=== PATIENT | female | born 1985 | race Caucasian/White ===

== ENCOUNTER → 2016-07-26 | Outpatient (CLI) | payer OTHER ==
--- NOTE | 2016-07-26 11:52 | US ---
July 26, 2016 Dear Ms. Karyna London, Thank you for requesting a ultrasound to evaluate anatomy for your patient, Mrs. Weber. As yo u know, Anjali is a 31 year old G 2, P 1001 with a yeung dating 20 w 0 d; AILEEN of 12/13 by LMP of 03/08/16 and 8 week ultrasound. Aneuploidy screening was not performed as she declined. Her first was uncomplicated and delivered vaginally at term. Her son weighed 8 lbs. 2 oz. ULTRASOUND Number of fetuses: 1 Placental location: Anterior Placental cord insertion: Intraplacental presentation: Cephalic Cervix: 3.9 cm viewed transabdominally Maximum Vertical Pocket: 4.2 cm The adnexa were evaluated. No pathology was seen. Right ovary is visualized and seen as normal. It measures 1.8 x 1.8 x 1.6 cm. Left ovary is visualized and seen as normal. It measures 2.4 x 1.7 x 1.1 cm. MEASUREMENTS: Biparietal diameter: 50 mm 21 weeks, 1 days Head circumference: 183 mm 20 weeks, 5 days Abdominal circumference: 161 mm 21 weeks, 2 days Femur length: 35 mm 21 weeks, 0 days Humerus length: 33 mm 21 weeks, 2 days Transcerebellar diameter: 21 mm 20 weeks, 2 days Average ultrasound age: 21 weeks, 1 days Estimated weight: 396 gm weight percentile: 94% ANATOMY Supratentorial brain: Normal including views of the falx, cavum septum pellucidum and choroids Lateral Ventricle: Normal, measuring 6.0 mm Posterior fossa: Normal including the cerebellum and cisterna magna Spine: Normal Nuchal fold: 4.5 mm normal Face: Normal views of the lip and nose area Profile: Normal Palate: Normal appearance of the alveolar ridge Heart: Four Chamber View: Normal LVOT: Normal RVOT: Limited but appears correctly oriented 3VV: Seen Trachel View Seen Aortic Arch: Seen Ductal Arch: Suboptimal SVC/IVC: Seen Heart Rate 139 bpm Diaphragm: Normal appearance without overt abnormality detected Stomach: Normal Umbilical cord insertion: Normal Right kidney: Normal Left kidney: Normal Bladder: Normal Number of cord vessels: Three Upper extremities: Normal Lower extremities: Normal Gender: Female IMPRESSION: 1. Intrauterine at 20 w 0 d, ultrasound is consistent with her established AILEEN of 12/13/16 . 2. Normal anatomical survey. 3. Cervical length is normal at 3.9 cm without evidence of insufficiency. RECOMMENDATIONS: I was pleased to review today's ultrasound with your patient and her spouse. We discussed that the b sebastian is large for gestational age which may be a growth spurt versus a macrosomic trend. Should willie l heights be concerning for size greater than dates in the latter part of , we are happy to reevaluate growth. The amniotic fluid volume is normal. Our detailed review of the anatomy did not reveal any overt abnormalities. Future ultrasound and consultation is left to your clinical discretion. Thank you for allowing us the opportunity to evaluate your patient. Should you have any further ques tions or concerns please do not hesitate to contact me. Low risk, no E&M. Anahi Coats MD Supervisor [facility] Maternal Medicine Diagnosis Department of Obstetrics & Gynecology [facility]
--- NOTE | 2016-07-26 13:46 | US ---
OB sonogram History: Check growth and anatomy, 20 weeks 0 days, AILEEN December 13, 2016, advanced maternal age Comparison: None Findings: There is a single viable intrauterine gestation in vertex presentation. The cervix is close d measuring 3.9 cm transabdominally. The fetus is in vertex presentation. The placenta is anterior wi thout previa. The umbilical cord inserts normally into the placenta. Both maternal ovaries are normal . Maximum amniotic fluid pocket = 4.2 cm. The visualized intracranial contents, face and spine look normal. The heart i s 4 chambered and has a rate of 139 BPM. The right and left ventricular outflow tracks look nor mal. Fluid is identified in the stomach and urinary bladder. The renal region looks normal. The umbilical cord has 3 vessels. The umbilical cord insertion site looks normal. 4 ex tremities are visualized. BPD = 15 mm = 21 weeks 1 day Head circumference = 1 83 mm = 20 weeks 5 days Abdominal circumference = 161 mm = 21 weeks 2 days Femur length = 35 mm = 21 weeks 0 days Humeral length = 33 mm = 21 weeks 2 days Cerebellar width = 21 mm = 20 weeks 2 days Cisterna magna = 3.9 mm Estimated weight = 94 percentile Average gestational age by ultrasound = 21 weeks 1 day Ultrasound AILEEN December 05, 2016 Impression: Size consistent with dates. This report should be read in conjunction with a consultation by Dr. Anahi Coats.
== END ==
LOC: FIMAGING 09:54
PROVIDERS: ATTEND Midwife
DX: Z36 Encounter for antenatal screening of mother (principal); Z3A.20 20 weeks gestation of pregnancy; O09.522 Supervision of elderly multigravida, second trimester

== ENCOUNTER 2016-12-10 23:00 | Inpatient (IN) | payer OTHER ==
[2016-12-10] MEDS ORDERED: TERBUTALINE SULFATE 1 MG/ML VIAL IV PRN (23:23)
[2016-12-10] MEDS ORDERED: LR 1,000 ML IV PRN (23:23)
[2016-12-10] MEDS ORDERED: OLIVE OIL 118 ML BTL MISC PRN (23:23)
[2016-12-10] MEDS ORDERED: EPSOM SALT 454 GM TP PRN (23:23)
[2016-12-10] MEDS ORDERED: OXYTOCIN/RINGERS LACTATE 1,000 ML IV PRN (23:23)
[2016-12-10] MEDS ORDERED: LIDOCAINE 1% 300 MG/30 ML SDV ONE (23:47)
[2016-12-10] MEDS ORDERED: OLIVE OIL 118 ML BTL ONE (23:47)
[2016-12-10] MEDS ORDERED: TERBUTALINE SULFATE 1 MG/ML VIAL ONE (23:47)
[2016-12-10] MEDS ORDERED: MISOPROSTOL 200 MCG TAB ONE (23:47)
[2016-12-10] MEDS ORDERED: AMMONIA AROMATIC 1 EACH AMP IH ONE (23:47)
--- NOTE | 2016-12-10 23:55 | GHP ---
[f rep st] PREOP HISTORY AND PHYSICAL Amended report DATE OF ADMISSION: 12/10/2016 CHIEF COMPLAINT: Labor. HISTORY OF PRESENT ILLNESS: The patient is a 31-year-old, G2, P1-0-0-1, female , who is at 39 and 4/7 weeks' gestation, who presents with complaints of contractions approximately every 5 minutes. She has had some bloody show. No loss of fluid. PAST MEDICAL HISTORY: Negative. PAST SURGICAL HISTORY: She had a dislocated patella repaired. OBSTETRICAL HISTORY: One previous , 8 pounds 2 ounces. FAMILY HISTORY: Noncontributory. ALLERGIC: To Compazine. CURRENT MEDICATIONS: Include vitamin, vitamin D3, and magnesium. REVIEW OF SYSTEMS: Positive for painful contractions and vaginal bleeding. She denies any headache or vision changes. PHYSICAL EXAM: VITAL SIGNS: Her blood pressure is 143/86, pulse is 70, O2 saturation is 97%. GENERAL: She is comfortable in between contractions. ABDOMEN: Gravid and nontender. Estimated weight is 8.5 pounds. : Cervical exam was 5 cm dilated, 90% effaced, and 0 station. heart tones are in the 130s, with moderate variability. LABORATORIES: Significant for B positive, antibody screen negative. Rubella immune. RPR nonreactive. Hepatitis B surface antigen negative. HIV negative. Gonorrhea and chlamydia negative. 1-hour Glucola 36%, and GBS negative on . ASSESSMENT AND PLAN: We have a 31-year-old, 2, para 1-0-0-1, female, who is at 39 and 4/7 weeks' gestation, who is in active labor. well being is reassuring, GBS is negative, and expect normal spontaneous vaginal delivery. /[id number]/MODL Add acc#, 12/11/16, kathryn HUMPHRIES
[2016-12-11 00:03] LABS: % IMMATURE GRANULYOCYTES 1.1 % (0.0-1.1); ABSOLUTE IMMATURE GRANULOCYTES 0.13 10^3/uL (0.00-0.10); ADD DIFF? NO; ADD MORPH? NO; ADD SCAN? NO; ATYPICAL LYMPHOCYTE FLAG 0 (0-99); FRAGMENT RBC FLAG 0 (0-99); HEMATOCRIT 36.2 % (38.0-47.0); LEFT SHIFT FLG 10 (0-99); LIPEMIA HEMOLYSIS FLAG 80 (0-99); MEAN CELL HEMOGLOBIN 29.2 pg (27.9-34.1); MEAN CELL HEMOGLOBIN CONCENTR. 33.1 g/dL (32.4-36.7); MEAN CELL VOLUME 88.1 fL (81.5-99.8); MEAN PLATELET VOLUME 11.4 fL (8.7-11.7); PLATELET CLUMPS FLAG 0 (0-99); PLATELET COUNT 243 10^3/uL (150-400); RED BLOOD CELL COUNT 4.11 10^6/uL (4.18-5.33); RED CELL DISTRIBUTION WIDTH 12.8 % (11.5-15.2)
[2016-12-11 00:58] LABS: ALANINE AMINOTRANSFERASE 50 IU/L (9-52); ASPARTATE AMINOTRANSFERASE 42 IU/L (14-46); BILIRUBIN,TOTAL 0.6 mg/dL (0.1-1.4); BILIRUBIN-CONJUGATED 0.3 mg/dL (0.0-0.5); BILIRUBIN-UNCONJUGATED 0.3 mg/dL (0.0-1.1); CREATININE 0.9 mg/dL (0.6-1.0); GLOMERULAR FILTRATION RATE > 60; LACTATE DEHYDROGENASE 597 IU/L (313-618); URIC ACID 4.8 mg/dL (2.5-6.8)
[2016-12-11] MEDS ORDERED: ACETAMINOPHEN 325 MG TAB PO PRN (02:32)
[2016-12-11] MEDS ORDERED: HYDROCORTISONE 0.5% CREAM TP PRN (02:32)
[2016-12-11] MEDS ORDERED: SIMETHICONE 80 MG TAB CHEW PO PRN (02:32)
--- NOTE | 2016-12-11 02:35 | OBDEL ---
Info Type: Vaginal GBS+: No Indications for Delivery: Spontaneous Labor Vaginal Delivery - Labor and Delivery Onset of Contractions Date: 12/10/16 Onset of Contractions Time: 21:30 Onset of Contractions Type: Spontaneous Rupture of Membranes Date: 12/11/16 Rupture of Membranes Time: 02: Rupture of Membranes Type: Spontaneous Amniotic Fluid Color: Clear Dilation Complete Date: 12/11/16 Dilation Complete Time: 02:15 Placenta Delivery Date: 12/11/16 Laceration: 1st Degree Repair: 3-0, Vicryl Vaginal Sponge Count Correct: Yes Vaginal Needle Count Correct: Yes Vaginal Sweep Performed: No EBL: 200 ml Delivery Events: None - Medications Labor Augmentation/Induction Methods Used: None Data [place] Delivery Date: 12/11/16 Delivery Time: : AILEEN: 12/13/16 Gestational Age: 39 week(s) and 5 day(s) Sex of Infant: Female Score (1 Min): 8 Score (5 Min): 9 ICD10 Worksheet Patient Problems: Problems Problem Status Onset Labor established Acute (normal spontaneous vaginal delivery) Acute
--- NOTE | 2016-12-11 02:36 | OBGCSDC ---
General Delivery Information - General Info : 2 Para: 1 Abortions: 0 Delivery Physician/CNM: Ashley Damico Admission Date: 12/10/16 Labs: Patient ABO/Rh B POSITIVE 12/10/16 22:00 Hct 36.2 % (38.0-47.0) L 12/10/16 22:00 Vaginal - Diagnosis Labor: Spontaneous Rupture of Membranes Type: Spontaneous Amniotic Fluid Color: Clear Laceration: 1st Degree Repair: 3-0, Vicryl Delivery Events: None - Hospital Course Antepartum: uncomplicated Intrapartum: uncomplicated : uncomplicated - Delivery Type: Vaginal EBL: 200 ml [place] Data [place] Delivery Date: 12/11/16 Delivery Time: 02:27 AILEEN: 12/13/16 Gestational Age: 39 week(s) and 5 day(s) Sex of : Female Score (1 Min): 8 Score (5 Min): 9
[2016-12-11] MEDS: IBUPROFEN 600 MG TAB PO PRN ×4 (02:58→21:56)
[2016-12-11] MEDS: DOCUSATE SODIUM 100 MG CAP PO PRN ×2 (08:50→21:56)
[2016-12-11 20:34] VITALS: BP 113/68; PULSE 67; RESP 16; TEMP 97.5; O2SAT 96
[2016-12-12] MEDS ORDERED: SUCROSE 1 EA UDL ONE (01:12)
[2016-12-12] MEDS: IBUPROFEN 600 MG TAB PO PRN ×2 (03:14→11:20)
--- NOTE | 2016-12-12 08:11 | OBPP ---
Progress Note Assessment/Plan: Assessment: 31 yo s/p , ppd 1, doing well. Plan: 12/12/16 08:10 Routine care, home today. Rh +, rubella immune. Subjective: 31 yo s/p , ppd 1, doing well. Objective: 12/10/16 22:00 12/10/16 22:00 Patient ABO/Rh B POSITIVE 12/10/16 22:00 Uric Acid 4.8 mg/dL (2.5-6.8) 12/10/16 22:00 Total Bilirubin 0.6 mg/dL (0.1-1.4) 12/10/16 22:00 Conjugated Bilirubin 0.3 mg/dL (0.0-0.5) 12/10/16 22:00 Unconjugated Bilirubin 0.3 mg/dL (0.0-1.1) 12/10/16 22:00 AST 42 IU/L (14-46) 12/10/16 22:00 ALT 50 IU/L (9-52) 12/10/16 22:00 Lactate Dehydrogenase 597 IU/L (313-618) 12/10/16 22:00 Temp Pulse Resp BP Pulse Ox 36.4 C 67 16 113/68 96 12/11/16 20:00 12/11/16 20:00 12/11/16 20:00 12/11/16 20:00 12/11/16 20:00 Uterine Position/Fundal Height: Umbilicus -2 Uterine Tone: Firm
== END 2016-12-12 14:43 | disposition home or self-care (01) | DRG 775 ==
LOC: FLD 23:00 → FOB 12-11 05:12
PROVIDERS: ADMIT Obstetrics & Gynecology; ATTEND Obstetrics & Gynecology
DX: O70.0 First degree perineal laceration during delivery (principal); Z3A.39 39 weeks gestation of pregnancy; Z37.0 Single live birth
CPT/HCPCS: J3105